=== PATIENT | male | born 1965 | race Caucasian/White ===

== ENCOUNTER 2016-10-04 22:06 | Emergency (ER) | payer OTHER ==
--- NOTE | 2016-10-04 22:27 | CPEKG ---
Heart Rate: 57 RR Interval: 1053 P-R Interval: 188 QRSD Interval: 122 QT Interval: 424 QTC Interval: 413 P Casar: 32 QRS Casar: 18 T Wave Casar: 25 EKG Severity - ABNORMAL ECG - EKG Impression: SINUS RHYTHM EKG Impression: IVCD, CONSIDER ATYPICAL RBBB Electronically Signed By: Erwin Sal 05-Oct-2016 07:46:20
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
[2016-10-04 22:32] VITALS: BP 137/82; PULSE 88; RESP 20; TEMP 98.2; O2SAT 94
[2016-10-04 22:54] LABS: % IMMATURE GRANULYOCYTES 0.3 % (0.0-1.1); ABSOLUTE IMMATURE GRANULOCYTES 0.03 10^3/uL (0.00-0.10); ADD DIFF? NO; ADD MORPH? NO; ADD SCAN? NO; ATYPICAL LYMPHOCYTE FLAG 10 (0-99); FRAGMENT RBC FLAG 0 (0-99); HEMATOCRIT 41.5 % (40.0-51.0); LEFT SHIFT FLG 0 (0-99); LIPEMIA HEMOLYSIS FLAG 90 (0-99); MEAN CELL HEMOGLOBIN 31.8 pg (27.9-34.1); MEAN CELL HEMOGLOBIN CONCENTR. 36.1 g/dL (32.4-36.7); MEAN CELL VOLUME 88.1 fL (81.5-99.8); MEAN PLATELET VOLUME 8.6 fL (8.7-11.7); PLATELET CLUMPS FLAG 10 (0-99); PLATELET COUNT 263 10^3/uL (150-400); RED BLOOD CELL COUNT 4.71 10^6/uL (4.40-6.38)
[2016-10-04 23:06] LABS: ANION GAP 9 mEq/L (8-16); CALCIUM 9.1 mg/dL (8.5-10.4); CARBON DIOXIDE 21 mEq/l (22-31); CHLORIDE 106 mEq/L (97-110); CREATININE 0.8 mg/dL (0.7-1.3); GLOMERULAR FILTRATION RATE > 60; GLUCOSE 117 mg/dL (70-100); POTASSIUM 3.5 mEq/L (3.5-5.2); SODIUM 136 mEq/L (134-144)
[2016-10-04 23:17] LABS: TROPONIN I < 0.012 ng/mL (0-0.034)
== END 2016-10-04 23:56 | disposition home or self-care (01) ==
LOC: EDUNIT#
DX: S59.912A Unspecified injury of left forearm, initial encounter (principal); S29.9XXA Unspecified injury of thorax, initial encounter; F17.200 Nicotine dependence, unspecified, uncomplicated; Z65.4 Victim of crime and terrorism; W22.8XXA Striking against or struck by other objects, initial encounter; Y92.521 Bus station as the place of occurrence of the external cause

== ENCOUNTER → 2017-03-06 | Outpatient (CLI) | payer OTHER | LOC: FIMAGING 16:23 | PROVIDERS: ATTEND Family Medicine | DX: N50.89 Other specified disorders of the male genital organs (principal) ==

== ENCOUNTER 2017-05-26 20:04 | Emergency (ER) | payer OTHER, MEDICAID ==
[2017-05-26 20:29] VITALS: RESP 18; TEMP 98.2
[2017-05-26] MEDS ORDERED: IBUPROFEN 200 MG TAB PO ONE (20:50)
[2017-05-26] MEDS ORDERED: traMADol 50 MG TAB PO ONE (20:50)
--- NOTE | 2017-05-26 21:16 | EDPHY ---
H & P Time Seen by Provider: 05/26/17 20:43 HPI/ROS: This patient complains of knee injury to the left knee 5 hr prior to arrival when he fell on the last 2 stairs causing hyperflexion injury to the left knee. He reports swelling since that time to this super lateral knee. He reports having had a few similar episodes over the years that typically resolves over 7- 10 days with ice and rest. However he reports this pain is more severe than prior episodes currently 8/10 intensity ache the becomes more sharp with walking. He did not hear a pop. He denies any other associated injuries from the fall. 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 Smoking Status: Current every day smoker Physical Exam: Physical Exam Vital signs are normal. General: No acute distress HEENT: Atraumatic. Eyes: Pupils equal and react to light. Extraocular motions are intact. Lungs: No respiratory distress. Cardiac: Brisk capillary refill is intact throughout. Pulses are 2+ and symmetric in the affected extremity. Skin: No rash or pallor. Extremities: Atraumatic normal except for left knee Left knee: Patient has swelling and mild tenderness just superior and lateral to the patella. He also has mild medial tenderness. However no increase in pain with varus or valgus stress or laxity with those maneuvers and no laxity with Yusuf's exam. Neuro: Alert and oriented x3 with no sensorimotor deficits. Initial differential diagnosis: Knee fracture, patellar subluxation-self reduced, osteoarthritis, sprain, strain Constitutional: Initial Vital Signs Temperature (C) 36.8 C 05/26/17 20:26 Heart Rate 88 05/26/17 20:26 Respiratory Rate 18 05/26/17 20:26 Blood Pressure 121/84 H 05/26/17 20:26 O2 Sat (%) 94 05/26/17 20:26 O2 Delivery Mode Room Air Allergies/Adverse Reactions: No Known Allergies Allergy (Verified 11/13/15 18:34) Home Medications: Medication Instructions Recorded Effexor Xr 01/31/14 Ibuprofen [Motrin (*)] 600 mg PO Q6 PRN #30 tab 05/26/17 traMADol [Ultram 50 mg (*)] 50 - 100 mg PO Q4 PRN #20 tab 05/26/17 MDM/Departure - [facility] Diagnostics: Knee x-rays: Osteoarthritis. No fracture. No other acute abnormalities by my interpretation Medications Given: Discontinued Medications Ibuprofen (Motrin) 400 mg PO EDNOW ONE Stop: 05/26/17 20:51 Last Admin: 05/26/17 21:03 Dose: 400 mg Tramadol HCl (Ultram) 50 mg PO EDNOW ONE Stop: 05/26/17 20:51 Last Admin: 05/26/17 21:02 Dose: 50 mg ED Course/Re-evaluation: Bob wrap Ibuprofen and tramadol for pain control partial relief. Counseled patient regarding his knee injury. Discussion: Patient likely with a patellar subluxation self reduced. He has crutches already will use them for ambulation with plan to follow up with Orthopedics. He understands the need to return emergency department should he develop any significant worsening despite treatment plan. - Depart Disposition: Home, Routine, Self-Care Clinical Impression: Knee injury Qualifiers: Encounter type: initial encounter Laterality: left Qualified Code(s): S89.92XA - Unspecified injury of left lower leg, initial encounter Condition: Good Instructions: Swollen Knee Joint (ED) Additional Instructions: Diagnosis: Knee injury Plan: Ice 20 min at a time 3 times a day Bob wrap Ibuprofen and Tylenol for pain. Crutches as needed for ambulation until symptoms improve. Tramadol in addition if needed for pain that prevents sleep. No drift IV in, alcohol or work on tramadol. Call Dr. Ragsdale-project management specialist arrange follow-up appointment for further evaluation Prescriptions: Ibuprofen [Motrin (*)] 600 mg PO Q6 PRN #30 tab PRN Reason: Pain traMADol [Ultram 50 mg (*)] 50 - 100 mg PO Q4 PRN #20 tab PRN Reason: breakthrough pain Referrals: NONE *PRIMARY CARE P,. [Primary Care Provider] - As per Instructions Georges Ragsdale MD [Medical Doctor] - As per Instructions
[2017-05-26 21:37] VITALS: BP 118/82; PULSE 80; O2SAT 93
== END 2017-05-26 21:20 | disposition home or self-care (01) ==
LOC: CED 20:04
DX: S89.92XA Unspecified injury of left lower leg, initial encounter (principal); F17.200 Nicotine dependence, unspecified, uncomplicated; W10.9XXA Fall (on) (from) unspecified stairs and steps, initial encounter
CPT/HCPCS: 73564-PO